=== PATIENT | female | born 1995 | race Caucasian/White ===

== ENCOUNTER 2024-02-24 20:25 | Emergency (ER) | payer MEDICAID ==
[~2024-02-24] VITALS: Ht 172.7 cm; Wt 59.0 kg
[2024-02-24 21:07] VITALS: O2SAT 100
[2024-02-24] MEDS ORDERED: HYDR453.3 TP (22:21)
[2024-02-24 22:51] VITALS: BP 118/78; PULSE 82; RESP 19; TEMP 37.05852; O2SAT 100
[2024-02-24] MEDS: DIPHENHYDRAMINE 25MG CAPSULE PO ONE (22:51)
== END 2024-02-24 22:53 | disposition home or self-care (01) ==
LOC: ER 20:25
DX: R21 Rash and other nonspecific skin eruption (principal)
CPT/HCPCS: 99282; Q0163